=== PATIENT | female | born 1940 | race Two or more races ===

== ENCOUNTER 2020-06-06 11:46 | Emergency (ER) | payer OTHER ==
[~2020-06-06] VITALS: Ht 152.4 cm; Wt 54.0 kg
== END 2020-06-06 19:41 | disposition home or self-care (01) ==
LOC: ER 11:46
DX: R19.5 Other fecal abnormalities (principal); Z20.828 Contact with and (suspected) exposure to other viral communicable diseases

== ENCOUNTER 2021-12-02 12:07 | Emergency (ER) | payer OTHER ==
[~2021-12-02] VITALS: Ht 154.9 cm; Wt 53.5 kg
[2021-12-02] MEDS ORDERED: ATORVASTATIN CA10 MG PO (12:51)
[2021-12-02] MEDS ORDERED: MEMANTINE HCL10 MG PO (12:53)
[2021-12-02] MEDS ORDERED: RIVASTIGMINE1 EAC2 TD (12:54)
== END 2021-12-02 21:39 | disposition home or self-care (01) ==
LOC: ER 12:07
DX: S09.8XXA Other specified injuries of head, initial encounter (principal); W19.XXXA Unspecified fall, initial encounter; Y93.89 Activity, other specified; Y92.89 Other specified places as the place of occurrence of the external cause; U07.1 COVID-19; R53.81 Other malaise; G30.9 Alzheimer's disease, unspecified; F02.80 Dementia in other diseases classified elsewhere, unspecified severity, without behavioral disturbance, psychotic disturbance, mood disturbance, and anxiety